=== PATIENT | female | born 1990 | race Caucasian/White ===

== ENCOUNTER 2017-10-02 21:12 | Inpatient (IN) | payer MEDICAID ==
[2017-10-02] MEDS ORDERED: Oxytocin 30 units/LR 500ML 30 UNITS/500 ML BAG IV ONE (22:13)
[2017-10-02] MEDS ORDERED: Lactated Ringer's 1,000 ML IV ONE (22:18)
[2017-10-02] MEDS ORDERED: Oxytocin 30 units/LR 500ML 30 U/500 ML BAG IV ONE (22:21)
[2017-10-02 22:23] VITALS: BMI 31.2
[2017-10-02] MEDS ORDERED: Nalbuphine HCL 10 mg/ml Ampule IVP PRN (22:49)
[2017-10-02 22:59] LABS: BASO # 0.1 K/uL (0.0-0.2); BASO % 0.7 % (0.0-2.0); EOS % 0.3 % (0.0-4.0); LYMPH # 2.6 K/uL (1.0-4.3); LYMPH % 25.6 % (20.0-40.0); MEAN CELL VOLUME 89.7 fl (81.0-99.0); MEAN CORPUSCULAR HEMOGLOBIN 30.8 pg (27.0-31.0); MEAN CORPUSCULAR HGB CONC 34.4 g/dL (33.0-37.0); MEAN PLATELET VOLUME 9.9 fl (7.2-11.7); MONO # 0.9 K/uL (0.0-0.8); MONO % 8.4 % (0.0-10.0); NEUT # 6.7 K/uL (1.8-7.0); RBC 4.21 Mil/uL (3.80-5.20); RED CELL DISTRIBUTION WIDTH 13.6 % (11.5-14.5); WHITE BLOOD COUNT 10.3 K/uL (4.8-10.8)
[2017-10-02] MEDS ORDERED: Oxycodone/Acetaminophen 5/325 mg Tab PO PRN (23:21)
[2017-10-02] MEDS ORDERED: Benzocaine/Menthol SPRAY TOP PRN (23:21)
[2017-10-03] MEDS ORDERED: Oxycodone/Acetaminophen 5/325 mg Tab PO PRN (00:34)
[2017-10-03] MEDS ORDERED: Benzocaine/Menthol SPRAY TOP PRN (00:34)
[2017-10-03 06:18] LABS: HEMOGLOBIN 12.4 g/dL (12.0-16.0); MEAN CELL VOLUME 88.8 fl (81.0-99.0); MEAN CORPUSCULAR HEMOGLOBIN 30.9 pg (27.0-31.0); MEAN CORPUSCULAR HGB CONC 34.8 g/dL (33.0-37.0); RED CELL DISTRIBUTION WIDTH 13.5 % (11.5-14.5); WHITE BLOOD COUNT 14.1 K/uL (4.8-10.8)
--- NOTE | 2017-10-03 08:49 | OBHP ---
Datetime: 10/02/2017 22:57 IP Adm Impression: Term, intrauterine ; Active labor; Ruptured Membranes IP Admit Plan: Admit to unit; Initiate labor protocol Admit Comment, IP Provider: PNP: Wilner Carrera Last visit: 09/27/2017 27 y/o at 39wks NATANAEL 10/09/2017 based on LMP 01/02/2017 is c/o contractions since 1pm this afte rnoon that have become more frequent and stronger. She denied any vaginal bleeding or fluid loss. Fet al movement was appreciated. Last sexual activity was one monht ago. OBGYNhx: chlamydia- 2015 treated PMH: none Familyhx: none Socialhx: no tobacco, EtOH or drugs Surghx: cholecystectomy-2007 Allergies: none Meds: ROS: denies dizziness, headache, blurred vision, cp, sob, n/v/d or dysuria PE: Gen:well appearing female Cardio: s1s2 auscultated, no murmurs Abd: BS+ Vag: fully dilated Ext: calf nontender A/P: 27 y/o at 39wks NATANAEL 10/09/2017 based on LMP 01/02/2017 c/o contractions. 1. Placed on FHR monitoring, which was reassuring. 2. Admitted to the unit. Case discussed with Dr. Adelaide Leary PGY-1 OB Hospitliston-call...Pt seen and examined in DR room...second stage of labor...agree with note. Anticiapte MAHNDO Pelvic Type - PN: Adequate Extremities - PN: Normal Abdomen - PN: Normal Back - PN: Normal Lungs - PN: Normal Heart - PN: Normal Thyroid - PN: Normal General - PN: Normal Presentation-Admit: Vertex FHR - Baseline A Provider: 130 Membranes, Provider: Ruptured Pool Provider: Positive IP Hx Assessment: The History has been Reviewed and is Current EGA AdmitDate IP: 39.0 Vital Signs Provider: Reviewed IP Chief Complaint: Uterine contractions NICHD Variability Prov Fetus A: Moderate 6-25bpm NICHD Accel Fetus A IP Provider: [id number] FHR Category Provider Fetus A: Category II NICHD Decel Fetus A IP Provider: Variable Dilatation, Provider: 10 Effacement, Provider: 100 Genitourinary Exam: Normal DTRs - PN: Normal
--- NOTE | 2017-10-03 08:52 | OBDS ---
DELIVERY PERSONNEL Delivery Doctor: Buddy Bryson DO (Annotations: Data stored by Elsy on behalf of user) Paper Counter: Mayra Rodas RN Resident: Gibran, PGY-1 MATERNAL INFORMATION Delivery Anesthesia: Local Medications in Delivery: Oxytocin 30 units Estimated Blood Loss (ml): 200 Placenta Cultured: No Maternal Complications: Precipitous Labor (<3hrs) Provider Comments: Procedure: of viable female in cephalic presentation over intact perineum. I nfant's head delivered in a controlled manner. One loose nuchal cord noted and reduced. Infant was bu lb suctioned, stimulated, and crying was spontaneous, and doing well. Cord was double clamped and cut . Cord blood was collected. Placenta was delivered intact spontaneously and 3 vessel cords noted. Cer vix and vagina inspected, 2nd degree laceration noted and repaird with 2.0 vicryl. Both and mother in stable condition. Dr. Adelaide Leary PGY-1 OB Hospitalist on-call. I attended ... 8,9. EBL 200cc agree with note MAHNDO LABOR SUMMARY EDC: 10/09/2017 00:00 No. Babies in Womb: 1 Attempted: No Labor Anesthesia: None LABOR INFORMATION Reason for Induction: Not Applicable Onset of Labor: 10/02/2017 13:00 Complete Dilatation: 10/02/2017 22:05 Group B Beta Strep: Negative Antibiotics # of Doses: 0 Steroids Given: None Reason Steroids Not Administered: Not Applicable MEMBRANES Membranes Rupture Method: Spontaneous Rupture of Membranes: 10/02/2017 22:05 Length of Rupture (hrs): 0.57 Amniotic Fluid Color: Clear Amniotic Fluid Amount: Moderate Amniotic Fluid Odor: Normal STAGES OF LABOR Stage 1 hrs: 9 Stage 1 min: 5 Stage 2 hrs: 0 Stage 2 min: 34 Stage 3 hrs: 0 Stage 3 min: 18 Total Time in Labor hrs: 9 Total Time in Labor min: 57 VAGINAL DELIVERY Episiotomy: None Laceration Extension: Second Degree Laceration Type: Perineal Laceration Repair: Yes Laceration Repair Note: Lidocaine infiltrated. A 2nd degree laceration repaired with 2.0 vicryl Initial Vag Sponge Count: 15 Final Vag Sponge Count: 15 Initial Vag Sharps Count: 3 Final Vag Sharps Count: 3 Sponge Count Correct: Yes Sharps Count Correct: Yes BABY A INFORMATION Delivery Date/Time: 10/02/2017 22:39 Method of Delivery: Vaginal Born in Route : No : N/A Forceps: N/A Vacuum Extraction: N/A Shoulder Dystocia : No SHOULDER DYSTOCIA BABY A Delivery Date/Time: 10/02/2017 22:39 PRESENTATION/POSITION BABY A Presentation: Cephalic Cephalic Presentation: Vertex Breech Presentation: N/A PLACENTA INFORMATION BABY A Placenta Delivery Time : 10/02/2017 22:57 Placenta Method of Delivery: Spontaneous Placenta Status: Delivered SCORES BABY A Heart Rate 1 min: >100 bpm Resp Effort 1 min: Slow, Irregular Reflex Irritability 1 min: Cough or Sneeze or Pulls Away Muscle Tone 1 min: Active Motion Color 1 min: Body [place], Extremities Blue Resuscitation Effort 1 min: Tactile Stimulation SCORE 1 MIN: 8 Heart Rate 5 min: >100 bpm Resp Effort 5 min: Good Cry Reflex Irritability 5 min: Cough or Sneeze or Pulls Away Muscle Tone 5 min: Active Motion Color 5 min: Body [place], Extremities Blue Resuscitation Effort 5 min: Tactile Stimulation SCORE 5 MIN: 9 INFORMATION BABY A Gestational Age at Delivery: 39.0 Gestational Status: Term Infant Outcome : Liveborn Infant Condition : Stable Sex: Female IDENTIFICATION/MEDS BABY A ID Band Number: [id number] ID Band Location: Left Leg; Left Arm WEIGHT/LENGTH BABY A Birthweight (gms): 3055 Weight (lb): 6 Infant Weight (oz): 12 CORD INFORMATION BABY A No. Cord Vessels: 3 Nuchal Cord : Around Neck x1, Loose Cord Blood Taken: Yes Suction: Mouth; Nose ASSESSMENT BABY A Complications: None Physical Findings at Delivery: Within Normal Limits Respirations: Appears Normal Central Supply Tech/ALS Called : No Transferred To: Remains with Mother
--- NOTE | 2017-10-03 10:22 | OBPPN ---
Datetime: 10/03/2017 07:16 PP Pain Prov: Within normal limits PP Nausea Prov: Denies PP Flatus Prov: Yes PP BM Prov: No PP Breasts Prov: Normal PP Heart Prov: Normal PP Lungs Prov: Normal PP Abdomen/Uterus Prov: Normal PP Lochia Prov: Normal PP CVA Tenderness Prov: Normal PP Extremities Prov: Normal PP Impression Prov: Normal progression PP Plan Prov: Continue present management PP Progress Note Prov: 27 y/o PPD1 s/p at 10/02/17 @ 22:439 was seen and examined at [facility] e this AM. Pain is well controlled with medication. +Flatus/-BM. Lochia is similar to menses volume. Denies fever, chills, n/v/d, cp, sob, calf pain or dizziness. Fundus is at level of the umbilicus. VS: stable GEN: well appearing female Cardio: S1S2, no murmurs Lungs: clear breath sounds b/l Abdomen: BS+, appropriate tenderness to palpation. EXT: calves nontender NEURO: AAOx3 A/P: 27 y/o PPD1 s/p at 10/02/17 @ 22:439 1. encouraged. 2.Ambulation encouraged. 3.Ibuprofen 600mg PRN for mild/mod pain _ Percocet 5-325mg for severe pain. 4.Anticipating d/c on 10/04/2017. Case discussed with OB attending Gisela Leary PGY-1 Attending addendum: I saw and axamined the patient at bedside myself. I reviewed the resident note above and agree wit h findings and management. Anticipate DC home tomorrow. Vital Signs Provider PP: Reviewed
--- NOTE | 2017-10-04 07:29 | OBDCSUM ---
Datetime: 10/03/2017 21:45 Discharged to, Provider: Home Follow up at, Provider: your doctor Disch Instr Activity: May be up to bathroom; May be up for meals; May Shower Disch Instr Diet: Regular Discharge Instructions, Provider: Routine instructions given Discharge Diagnosis, Provider: Term Delivered Discharge Time: 10/04/2017 10:00 Follow up in weeks, Provider: 6 weeks Disch Referrals: None Contraception discussed, Prov: Yes Disch Activity Restrictions: No lifting; Minimize stair-climbing; Nothing in vagina - [place], [place] Discharge Comment, Provider: 1. Continue attempts at . 2. Ibuprofen as needed for moderate pain. 3. Continue walking as much as tolerated. 4. Please plan follow up visit in 3-7 days with cigar packer and shader. 5. Please see your doctor in 6 weeks. 6. No heavy lifting or anything in the vagina for 6 weeks. 7. Please avoid stairs if possible. 8. If you develop severe or worsening pain, please go to the ED. Contraception after Delivery: Control Pill/Patch
--- NOTE | 2017-10-04 07:29 | OBPPN ---
Datetime: 10/04/2017 07:25 PP Pain Prov: Within normal limits PP Abdomen/Uterus Prov: Normal PP Lochia Prov: Normal PP Extremities Prov: Normal PP Progress Prov: Normal PP Impression Prov: Normal progression PP Plan Prov: Discharge PP Progress Note Prov: PPD 2 s/p , doing well, breast and bottle feeding Rx motrin Discharge home today Vital Signs Provider PP: Reviewed
[2017-10-04 19:30] VITALS: BP 132/85; PULSE 61; RESP 20; TEMP 97.9
== END 2017-10-04 13:34 | disposition home or self-care (01) | DRG 373 ==
LOC: H.EROB2 21:12 → H.L&D 22:16 → H.OB/GYN 10-03 00:30
PROVIDERS: ADMIT Obstetrics & Gynecology; ATTEND Obstetrics & Gynecology
PROC: 10E0XZZ Delivery of Products of Conception, External Approach (ICD-10-PCS; principal; 2017-10-02)
PROC: 0KQM0ZZ Repair Perineum Muscle, Open Approach (ICD-10-PCS; 2017-10-02)
PROC: 4A1HXCZ Monitoring of Products of Conception, Cardiac Rate, External Approach (ICD-10-PCS; 2017-10-02)
DX: O62.3 Precipitate labor (principal); O70.1 Second degree perineal laceration during delivery; Z3A.39 39 weeks gestation of pregnancy; Z37.0 Single live birth; O69.81X0 Labor and delivery complicated by cord around neck, without compression, not applicable or unspecified